=== PATIENT | female | born 1945 | race Caucasian/White ===

== ENCOUNTER → 2023-11-15 | Outpatient (CLI) | payer OTHER ==
[2023-11-19 11:45] LABS: HSV 1 SUBTYPE BY PCR Not Detected; HSV 2 SUBTYPE BY PCR Not Detected; HSV SUBTYPE SOURCE LEFT BUTTOCK
== END ==
LOC: LAB SHORT 16:50 → LAB 16:50
PROVIDERS: Physician Assistant Medical
DX: B00.1 Herpesviral vesicular dermatitis (principal)
CPT/HCPCS: 87529